=== PATIENT | female | born 1960 | race Caucasian/White ===

== ENCOUNTER 2019-07-17 06:15 | Day surgery (SDC) | payer BC ==
[2019-07-17] MEDS ORDERED: Lactated Ringers 1,000 ML IV ONE (06:16)
[2019-07-17] MEDS ORDERED: Midazolam 1 MG/ML 2 ML SDV IV ONE (06:16)
[2019-07-17] MEDS ORDERED: Ropivacaine 0.5% 5 MG/ML 20 ML SDV INJECT ONE (06:16)
[2019-07-17] MEDS ORDERED: fentaNYL 100 MCG/2 ML SDV IV ONE (06:16)
[2019-07-17] MEDS ORDERED: Propofol 200 MG/20 ML SDV IV ONE (06:16)
[2019-07-17] MEDS ORDERED: Ondansetron 4 MG/2 ML SDV IVPUSH ONE (06:16)
[2019-07-17] MEDS ORDERED: Ketorolac 30 MG/ML SDV IVPUSH ONE (06:16)
[2019-07-17] MEDS ORDERED: Gabapentin 300 MG Cap PO ONE (06:30)
[2019-07-17] MEDS ORDERED: Scopolamine 1.5 MG Transdermal Patch TRDERM ONE (06:30)
[2019-07-17] MEDS ORDERED: Acetaminophen 500 MG Tab PO ONE (06:30)
[2019-07-17] MEDS ORDERED: Sodium Chloride 0.9% 10 ML Syringe FLUSH PRN ×2 (06:30→11:14)
[2019-07-17] MEDS ORDERED: Lactated Ringers 1,000 ML IV SCH (06:30)
[2019-07-17] MEDS ORDERED: Ropivacaine 49.25 ML, Ketorolac 30 MG, EPINEPHrine 0.5 MG, cloNIDine 80 MCG, Sodium Chl... INJECT ONE ×5 (08:00)
[2019-07-17] MEDS ORDERED: Tranexamic Acid 3,000 MG, Sodium Chloride 0.9% 100 ML IRR ONE ×2 (08:20)
[2019-07-17] MEDS ORDERED: Vancomycin 1 GM SDV ONE (10:02)
[2019-07-17] MEDS ORDERED: Zolpidem 5 MG Tab PO PRN (11:14)
[2019-07-17] MEDS ORDERED: Bisacodyl 5 MG Tab PO PRN (11:14)
[2019-07-17] MEDS ORDERED: traMADol 50 MG Tab PO PRN (11:14)
[2019-07-17] MEDS ORDERED: Morphine 2 MG/ML Syringe IVPUSH PRN (11:14)
[2019-07-17] MEDS ORDERED: Docusate Sodium 100 MG Cap PO PRN (11:14)
[2019-07-17] MEDS ORDERED: Ondansetron 4 MG/2 ML SDV IVPUSH PRN (11:14)
[2019-07-17] MEDS ORDERED: Magnesium Hydroxide 400 MG/5 ML Susp 30 ML Cup PO PRN (11:14)
[2019-07-17] MEDS ORDERED: Sennosides 8.6 MG Tab PO PRN (11:14)
[2019-07-17] MEDS ORDERED: Naloxone 0.4 MG/ML SDV IVPUSH PRN (11:14)
[2019-07-17] MEDS ORDERED: diphenhydrAMINE 50 MG/ML SDV IVPUSH PRN (11:14)
--- NOTE | 2019-07-17 12:20 | PCM.SN ---
- Free Text/Narrative Note: ANESTHESIA ACUTE PAIN SERVICE Date: 07/17/2019 Time: 1112 to 1131 Dx: End-stage Osteoarthritis Left Knee Rx: Left Total Knee Arthroplasty The physician and the patient both request post-operative pain control. Procedure: Left Adductor Canal Nerve Block with Ultrasound [U/S] Guidance. I discussed the risks and benefits of this nerve block with the patient and her including block failure. All questions about this were answered completely and she wishes to proceed with this nerve block in PACU. A consent was obtained. Monitors: NIBP, ECG, SpO2 and O2 per nasal cannula at 2 L/Min. See her vital signs in the nursing chart. Sedation: None She remained arousable and alert / orientated throughout the procedure. The patient is supine with her left leg in a frogleg position. A pre-nerve block U/S scan showed the left Femoral Artery/Vein and the Sartorius muscle superior to the artery at a depth of 5.5 cm [her BMI 48+] Using aseptic technique, I prepped the needle insertion site with a Chlora-Prep sponge X 1 and allowed it to dry. No local was needed since the spinal was working well. I then inserted and advanced a 20 Ga. X 3.5 In. Stimuplex Ultra 360 Insulated Echogenic Needle under direct U/S visualization. I did enter the Femoral artery with a positive aspiration for blood. I then backed out the needle until there was no aspiration of blood. With multiple attempts under U/S [the picture was very grainy and hard to see after the first scan], I then placed the needle next to the artery with a negative aspiration for blood. The total injection solution was 20 ml's of .5% Naropin in divided doses. No patient complaints or complications noted. Documentation: See U/S images taken in Radiology's PAC System. Thank you for using our service. TAI Cabezas CRNA
--- NOTE | 2019-07-17 14:05 | OR ---
DATE OF OPERATION: 07/17/2019 SURGEON: Leo Echavarria DO PREOPERATIVE DIAGNOSIS: Left knee primary osteoarthritis. POSTOPERATIVE DIAGNOSES: 1. Left knee primary osteoarthritis. 2. Medial and posterior tibial plateau fracture. TABLE SETTER: Cee Wilson NP. Nurse practitioner, Cee Wilson NP, played an essential role in assisting in this case, helping to position the patient, retract structures as needed, as well as suturing and cutting sutures as indicated. Her presence improved patient's safety and decreased operative time. ANESTHESIA: Spinal plus conscious sedation. FLUID: Lactated Ringer solution. ESTIMATED BLOOD LOSS: 300 mL. COMPLICATION: None. SPECIMEN: None. DISCHARGE DISPOSITION: Stable to PACU. HISTORY AND INDICATION FOR THE PROCEDURE: The patient was seen preoperatively in the clinic. She had been having increasing left knee pain. Preoperative imaging confirmed the above-mentioned diagnosis. Risks and benefits of the procedure were explained to the patient. Informed consent was obtained. DETAILS OF PROCEDURE: The patient was seen preoperatively by myself and the anesthesia staff in the preoperative holding area where the operative site was marked. She was brought to the operative suite by Anesthesia staff where spinal plus conscious sedation was administered. A well-padded tourniquet was placed on the left thigh. All extremities were found to be well padded. The left lower extremity was then prepped and draped in a sterile manner. Time-out was called identifying the correct patient, correct procedure, the correct site, and the antibiotics were begun within appropriate time. A midline incision was made from the tibial tubercle 4 fingerbreadths proximal to the patella. Medial parapatellar arthrotomy was made. Bleeding was controlled with Bovie electrocautery. A full synovectomy was performed. Osteophytes from all 3 compartments were rongeured off. The patella was everted and held in place with a towel clip. The knee was then flexed. After the osteophytes and soft tissue around the patella were removed, I made 2 perpendicular cuts and then drilled my trial holes and then placed my trial patella in place. We then reamed the distal femur and placed an intramedullary guide at 5-degree valgus 9 mm distal cut. The distal femur was cut after removing the intramedullary portion of the guide. The guide was then removed. Posterior condylar guide was then used after removing more osteophytes. This measured a 5, so 2 pins were placed for the 5 and then a chamfer block was placed and then medial and lateral Hohmanns were placed to protect the collateral ligaments and then we did our chamfer cuts. I then cleaned these up and removed osteophytes with rongeurs and osteotomes. I then focused on the tibia. We used an extramedullary tibial guide in line with the tibial tubercle and 2nd metatarsal with approximately 5 degree posterior slope. I used medial and lateral Hohmann for protection. I did not use a posterior Hohmann at that point due to difficulty in exposure with all the osteophytes. I had removed many of the osteophytes from the medial tibial plateau. I then made my proximal cut. I then removed the proximal tibia portion. I did make a 2nd cut. After that had been performed, I removed my cutting guide and then used a lamina general handling supervisor. At this point, I could see that there was a posterior tibial plateau fracture. This was not fresh as the edges were not bloody. Part of this, about half of it was osteophyte on the medial side. The total was about 2 cm x 3 cm wide. I removed this portion as most of it was osteophyte and then removed the remainder of the medial and lateral menisci and then used a curved osteotome to remove posterior osteophytes. I then anteriorized the tibia. I then actually used sulcus guide and reamed out the sulcus with a rasp. I then anterior the tibia with a blunt Hohmann and then placed 4 baseplate, which fit nicely in line with the tibial spine and 2nd metatarsal. I put the tower in place and then reamed and tamped this into position. I then placed my femur on, the tibial trial was a 5 mm, size 4, and then tried that. It was tight on the lateral side compared to the medial. I then applied my extramedullary tibial guide again and with osteophytes removed, I was able to remove a little bit more on the lateral plateau while still keeping in line with the tibial tubercle and 2nd metatarsal. We then trialed this again and went up to an 8. The medial collateral ligament and lateral collateral ligaments were still competent and I could feel that there was slight gapping of the medial compartment, but certainly not beyond what would be acceptable. We then removed all of our components. We then copiously irrigated with saline and then cemented the components in place in full extension. After this, we let the tourniquet down at 70 minutes. The poly was then removed. We controlled any bleeders with Bovie electrocautery. I did apply later on some Floseal and some Avitene. There were just small bleeders present. I placed my final polyethylene with a size 8 mm, but thought that after we put this in that this was too lax. I trialed up to a 12, and I thought that this would provide good stability. We then inserted the 12 mm polyethylene, which provided excellent medial and lateral stability; however, there was significant anterior-posterior instability. I then irrigated again with Betadine infused irrigation and then closed the parapatellar arthrotomy with a [id number] #5 Ethibond sutures followed by a 1 Stratafix in a watertight manner. At the distal end over the baseplate and part of the poly, this was uncovered, so I placed a small amount of mesh and tied this in with Ethibond just to protect the capsule more. I then closed with a #2 running Stratafix subcutaneously followed by skin aayush followed by Betadine-soaked Adaptic. This was still very stable from a medial-lateral standpoint and extension as well as mid flexion; however, it was fairly unstable anterior to posterior. We then put on a dressing and an Marino wrap and allowed the patient to awake from general anesthesia. She was then going to get a block and then be placed into a hinged knee brace, which will be unlocked. The patient was then taken to PACU in stable condition. /[id number] ROSA/CARMINE
--- NOTE | 2019-07-17 15:37 | CR ---
INDICATION: Postop left total knee arthroplasty. LEFT KNEE: Frontal and lateral views of the left knee were obtained 07/17/2019 and compared with preoperative study of 06/25/2019 revealing interval total knee arthroplasty with good position and alignment suggested, and no definite complicating process identified. Intraoperative changes remain present with air in the joint. Metallic clips are noted closing the surgical wound anteriorly. IMPRESSION: Satisfactory appearance postop TKA. JAVIER
[2019-07-17] MEDS: Acetaminophen/oxyCODONE 325-5 MG Tab PO PRN ×2 (16:51→21:11)
[2019-07-17] MEDS: Ketorolac 30 MG/ML SDV IVPUSH SCH (18:50)
[2019-07-17] MEDS: Lactated Ringers 1,000 ML IV SCH (18:52)
[2019-07-17] MEDS ORDERED: DULoxetine 20 MG Cap PO SCH (20:00)
[2019-07-17] MEDS ORDERED: ClonazePAM 0.5 MG Tab PO SCH (21:00)
[2019-07-17] MEDS: ceFAZolin 1 GM Vial IVPUSH SCH (21:55)
[2019-07-18] MEDS: Ketorolac 30 MG/ML SDV IVPUSH SCH (01:52)
[2019-07-18] MEDS: ceFAZolin 1 GM Vial IVPUSH SCH (05:42)
[2019-07-18] MEDS: Acetaminophen/oxyCODONE 325-5 MG Tab PO PRN ×4 (05:44→20:59)
[2019-07-18] MEDS: Lactated Ringers 1,000 ML IV SCH (07:53)
[2019-07-18] MEDS: Aspirin 325 MG Tab.EC PO SCH (08:25)
[2019-07-18] MEDS: DULoxetine 20 MG Cap PO SCH (08:25)
[2019-07-18] MEDS: Hydrochlorothiazide/Lisinopril 25-20 MG Tab PO SCH (08:25)
[2019-07-18] MEDS: Calcium Carbonate 500 MG Tablet PO SCH (08:26)
[2019-07-18] MEDS ORDERED: amLODIPine 5 MG Tab ONE (20:38)
[2019-07-18] MEDS: amLODIPine 2.5 MG Tab PO SCH (20:56)
[2019-07-19] MEDS: Acetaminophen/oxyCODONE 325-5 MG Tab PO PRN ×4 (01:09→13:22)
[2019-07-19] MEDS: DULoxetine 20 MG Cap PO SCH (09:22)
[2019-07-19] MEDS: Aspirin 325 MG Tab.EC PO SCH (09:22)
[2019-07-19] MEDS: Hydrochlorothiazide/Lisinopril 25-20 MG Tab PO SCH (09:22)
[2019-07-19] MEDS: Calcium Carbonate 500 MG Tablet PO SCH (09:23)
[2019-07-19] MEDS: amLODIPine 2.5 MG Tab PO SCH (09:23)
--- NOTE | 2019-07-19 11:05 | PCM.PN ---
- General Info Date of Service: 07/18/19 Admission Dx/Problem (Free Text): left knee primary oa Functional Status: Reports: Pain Controlled, Tolerating Diet, Ambulating, Urinating - Review of Systems General: Reports: No Symptoms HEENT: Reports: No Symptoms Pulmonary: Reports: No Symptoms Cardiovascular: Reports: No Symptoms Gastrointestinal: Reports: No Symptoms Genitourinary: Reports: No Symptoms Musculoskeletal: Reports: Leg Pain, Joint Pain, Joint Swelling Skin: Reports: No Symptoms Neurological: Reports: No Symptoms Psychiatric: Reports: No Symptoms - Patient Data Vitals - Most Recent: Last Vital Signs Temp 98.6 F 07/19/19 05:15 Pulse 75 07/19/19 05:15 Resp 20 07/19/19 05:15 BP 132/66 07/19/19 09:23 Pulse Ox 91 L 07/19/19 05:15 Weight - Most Recent: 265 lb I&O - Last 24 Hours: Intake & Output 07/18/19 07/19/19 07/19/19 22:59 06:59 14:59 Intake Total 400 Balance 400 Lab Results Last 24 Hours: Laboratory Results - last 24 hr 07/19/19 07/19/19 Range/Units 06:10 06:10 WBC 6.1 (4.5-12.0) X10-3/uL RBC 3.32 (3.23-5.20) x10(6)uL Hgb 10.8 L (11.5-15.5) g/dL Hct 31.4 (30.0-51.3) % MCV 94.6 (80-96) fL MCH 32.4 (27.7-33.6) pg MCHC 34.2 (32.2-35.4) g/dL RDW 12.2 (11.5-15.5) % Plt Count 141 (125-369) X10(3)uL MPV 8.7 (7.4-10.4) fL Neut % (Auto) 57.0 (46-82) % Lymph % (Auto) 30.7 (13-37) % [place] % (Auto) 8.7 (4-12) % Eos % (Auto) 3 (1.0-5.0) % Baso % (Auto) 1 (0-2) % Neut # (Auto) 3.5 (1.6-8.3) # Lymph # (Auto) 1.9 (0.6-5.0) # [place] # (Auto) 0.5 (0.0-1.3) # Eos # (Auto) 0.2 (0.0-0.8) # Baso # (Auto) 0.0 (0.0-0.2) # Sodium 137 (135-145) mmol/L Potassium 4.0 (3.5-5.3) mmol/L Chloride 101 (100-110) mmol/L Carbon Dioxide 29 (21-32) mmol/L BUN 12 (7-18) mg/dL Creatinine 0.7 (0.55-1.02) mg/dL Est Cr Clr Drug Dosing 70.70 mL/min Estimated GFR (MDRD) > 60 (>60) BUN/Creatinine Ratio 17.1 (9-20) Glucose 90 (80-116) mg/dL Calcium 8.6 (8.6-10.2) mg/dL Total Bilirubin 1.3 (0.1-1.3) mg/dL AST 22 (5-25) IU/L ALT 22 D (12-36) U/L Alkaline Phosphatase 53 L (56-112) IU/L Total Protein 5.7 L (6.0-8.0) g/dL Albumin 2.8 L (3.2-4.6) g/dL Globulin 2.9 g/dL Albumin/Globulin Ratio 1.0 Med Orders - Current: Current Medications Amlodipine Besylate (Norvasc) 2.5 mg PO DAILY [facility] Last Admin: 07/19/19 09:23 Dose: 2.5 mg Aspirin (Ecotrin) 325 mg PO DAILY [facility] Last Admin: 07/19/19 09:22 Dose: 325 mg Bisacodyl (Dulcolax) 10 mg PO DAILY PRN PRN Reason: Constipation Calcium Carbonate/Glycine (Oyster Shell Calcium) 500 mg PO DAILY [facility] Last Admin: 07/19/19 09:23 Dose: 500 mg Diazepam (Valium) 5 mg IVPUSH Q6H PRN PRN Reason: Spasms Diphenhydramine HCl (Benadryl) 25 mg IVPUSH Q4H PRN PRN Reason: Itching Docusate Sodium (Colace) 100 mg PO BID PRN PRN Reason: Constipation Duloxetine HCl (Cymbalta) 40 mg PO DAILY [facility] Last Admin: 07/19/19 09:22 Dose: 40 mg Lisinopril/HCTZ (Lisinopril-Hctz 20-25 Mg) 1 tab PO DAILY [facility] Last Admin: 07/19/19 09:22 Dose: 1 tab Lactated Ringer's (Ringers, Lactated) 1,000 mls @ 75 mls/hr IV ASDIRECTED [facility] Last Admin: 07/18/19 07:53 Dose: 75 mls/hr Magnesium Hydroxide (Milk Of Magnesia) 30 ml PO BID PRN PRN Reason: Constipation Morphine Sulfate (Morphine) 2 mg IVPUSH Q2H PRN PRN Reason: Breakthrough Pain Naloxone HCl (Narcan) 0.1 mg IVPUSH ONETIME PRN PRN Reason: Oversedation Ondansetron HCl (Zofran) 4 mg IVPUSH Q4H PRN PRN Reason: Nausea/Vomiting Oxycodone/Acetaminophen (Percocet 325-5 Mg) 2 tab PO Q4H PRN PRN Reason: Pain (moderate 4-6) Last Admin: 07/19/19 09:24 Dose: 2 tab Senna (Senna) 8.6 mg PO BID PRN PRN Reason: Constipation Sodium Chloride (Saline Flush) 10 ml FLUSH ASDIRECTED PRN PRN Reason: Keep Vein Open Sodium Chloride (Saline Flush) 10 ml FLUSH ASDIRECTED PRN PRN Reason: Keep Vein Open Tramadol HCl (Ultram) 100 mg PO Q6H PRN PRN Reason: Pain (mild 1-3) Zolpidem Tartrate (Ambien) 5 mg PO BEDTIME PRN PRN Reason: Sleep Discontinued Medications Acetaminophen (Tylenol Extra Strength) 1,000 mg PO ONETIME ONE Stop: 07/17/19 06:31 Last Admin: 07/17/19 07:19 Dose: 1,000 mg Amlodipine Besylate (Norvasc) Confirm Administered Dose 5 mg .ROUTE .STK-MED ONE Stop: 07/18/19 20:39 Last Admin: 07/18/19 20:56 Dose: Not Given Cefazolin Sodium (Ancef) 1 gm IVPUSH Q8H [facility] Stop: 07/18/19 05:31 Last Admin: 07/18/19 05:42 Dose: 1 gm Ropivacaine 49.25 ml/Ketorolac Tromethamine 30 mg/Epinephrine HCl 0.5 mg/ Clonidine HCl 80 mcg/ Sodium Chloride 48.45 ml 0 ml INJECT ASDIRECTED ONE Stop: 07/17/19 08:01 Last Admin: 07/17/19 09:14 Dose: 100 syringe Tranexamic Acid 3,000 mg/ (Sodium Chloride 100 ml) 0 mg IRR ONETIME ONE Stop: 07/17/19 08:21 Last Admin: 07/17/19 09:14 Dose: 100 irr Gabapentin (Neurontin) 300 mg PO ONETIME ONE Stop: 07/17/19 06:31 Last Admin: 07/17/19 07:19 Dose: 300 mg Cefazolin Sodium 3 gm/ Sodium (Chloride) 100 mls @ 200 mls/hr IV ONETIME ONE Stop: 07/17/19 06:59 Last Admin: 07/17/19 07:55 Dose: 200 mls/hr Lactated Ringer's (Ringers, Lactated) 1,000 mls @ 125 mls/hr IV ASDIRECTED [facility] Last Admin: 07/17/19 07:17 Dose: 125 mls/hr Ketorolac Tromethamine (Toradol) 30 mg IVPUSH Q8H [facility] Stop: 07/18/19 02:31 Last Admin: 07/18/19 01:52 Dose: 30 mg Scopolamine (Transderm-Scop) 1.5 mg TRDERM Q72H ONE Stop: 07/17/19 06:31 Last Admin: 07/17/19 07:18 Dose: 1.5 mg Vancomycin HCl (Vancomycin) 1 gm .XX .STK-MED ONE Stop: 07/17/19 10:03 Last Admin: 07/17/19 10:02 Dose: 1 gm - Exam General: Alert, Oriented, Cooperative, Moderate Distress HEENT: Pupils Equal, Pupils Reactive, EOMI, Mucous Membr. Moist/[place] Neck: Supple, Trachea Midline Lungs: Normal Respiratory Effort Extremities: Joint Swelling, Leg Pain, Limited Range of Motion Skin: Warm, Dry, Intact Wound/Incisions: Healing Well, Drainage Neurological: No New Focal Deficit Psy/Mental Status: Alert, Normal Affect, Normal Mood Sepsis Event Note - Evaluation Sepsis Screening Result: No Definite Risk - Focused Exam Vital Signs: Vital Signs Temp Pulse Resp BP BP BP Pulse Ox 07/19/19 09:23 132/66 07/19/19 09:22 132/66 07/19/19 05:15 98.6 F 75 20 120/54 L 91 L 07/19/19 01:00 98.6 F 79 18 105/56 L 91 L Date Exam was Performed: 07/19/19 Time Exam was Performed: 11:03 - Problem List & Annotations (1) Arthritis of left knee SNOMED Code(s): 386766411 Code(s): M17.12 - UNILATERAL PRIMARY OSTEOARTHRITIS, LEFT KNEE Status: Acute Current Visit: Yes - Problem List Review Problem List Initiated/Reviewed/Updated: Yes - My Orders Last 24 Hours: My Active Orders 07/18/19 Dinner Regular Diet [DIET] - Plan Plan:: pt/ot, pain control, dvt prophylaxis, keep in brace unlocked
--- NOTE | 2019-07-19 11:09 | PCM.DCSUM1 ---
Discharge Summary - Hospital Course Diagnosis: Stroke: No - Discharge Data Discharge Date: 07/19/19 Discharge Disposition: Home, Self-Care 01 Condition: Good - Referral to Home Health Primary Care Physician: Ella Carbajal NP - Discharge Diagnosis/Problem(s) (1) Arthritis of left knee SNOMED Code(s): 697780610 ICD Code: M17.12 - UNILATERAL PRIMARY OSTEOARTHRITIS, LEFT KNEE Status: Acute Current Visit: Yes - Patient Summary/Data Operative Procedure(s) Performed: left knee tka Complications: none Consults: Consultations 07/17/19 15:00 OT Evaluation and Treatment [CONS] Routine Please Evaluate and Treat. OT Reason for Consult: Strengthening This query below is only for informational purposes and is not editable. Admission Diagnosis/Problem: Left knee pain PT Evaluation and Treatment [CONS] Routine Please Evaluate and Treat. PT Reason for Consult: Strengthening This query below is only for informational purposes and is not editable. Admission Diagnosis/Problem: Left knee pain - Patient Instructions Diet: Usual Diet as Tolerated Activity: Apply Ice, As Tolerated, Full Weight Bearing, No Strenuous Activities Driving: Do Not Drive Showering/Bathing: May Shower Wound/Incision Care: Keep Operative Site/Wound Site Clean and Dry Wound/Incision, Other: remove wound vac wednesday, replace with aquacell Notify Provider of: Fever, Increased Pain, Swelling and Redness, Drainage, Nausea and/or Vomiting - Discharge Plan *PRESCRIPTION DRUG MONITORING PROGRAM REVIEWED*: Yes *COPY OF PRESCRIPTION DRUG MONITORING REPORT IN PATIENT LILIYA: No Prescriptions/Med Rec: Aspirin [Ecotrin EC] 325 mg PO DAILY #21 tab.ec Home Medications: Home Meds Calcium Carbonate/Vitamin D3 [Calcium 600 + Vit D 200] 1 tab PO DAILY 07/13/19 [ History] DULoxetine [Cymbalta] 40 mg PO DAILY 07/13/19 [History] Fish Oil/[place]-3 Fatty Acids [Fish Oil 1,000 MG] 1 each PO DAILY 07/13/19 [ History] Multivitamin with Minerals [Multiple Vitamin] 1 tab PO DAILY 07/13/19 [History] Simvastatin [Zocor] 20 mg PO BEDTIME 07/13/19 [History] amLODIPine Besylate [Norvasc] 2.5 mg PO DAILY 07/13/19 [History] clonazePAM [Klonopin] 0.5 mg PO BEDTIME 07/13/19 [History] Lisinopril/Hydrochlorothiazide [Lisinopril-Hctz 20-25 mg Tab] 1 tab PO DAILY 08/31 [History] Aspirin [Ecotrin EC] 325 mg PO DAILY #21 tab.ec 07/19/19 [Rx] Patient Handouts: Total Knee Replacement, Care After, [id number], Fall Prevention in Hospitals, Adult, Preventing Problems After Surgery, Venous Thromboembolism Prevention, Community-Acquired Pneumonia, Adult, [id number] - Discharge Summary/Plan Comment DC Time >30 min.: No - Patient Data Vitals - Most Recent: Last Vital Signs Temp 98.6 F 07/19/19 05:15 Pulse 75 07/19/19 05:15 Resp 20 07/19/19 05:15 BP 132/66 07/19/19 09:23 Pulse Ox 91 L 07/19/19 05:15 Weight - Most Recent: 265 lb I&O - Last 24 hours: Intake & Output 07/18/19 07/19/19 07/19/19 22:59 06:59 14:59 Intake Total 400 Balance 400 Lab Results - Last 24 hrs: Laboratory Results - last 24 hr 07/19/19 07/19/19 Range/Units 06:10 06:10 WBC 6.1 (4.5-12.0) X10-3/uL RBC 3.32 (3.23-5.20) x10(6)uL Hgb 10.8 L (11.5-15.5) g/dL Hct 31.4 (30.0-51.3) % MCV 94.6 (80-96) fL MCH 32.4 (27.7-33.6) pg MCHC 34.2 (32.2-35.4) g/dL RDW 12.2 (11.5-15.5) % Plt Count 141 (125-369) X10(3)uL MPV 8.7 (7.4-10.4) fL Neut % (Auto) 57.0 (46-82) % Lymph % (Auto) 30.7 (13-37) % [place] % (Auto) 8.7 (4-12) % Eos % (Auto) 3 (1.0-5.0) % Baso % (Auto) 1 (0-2) % Neut # (Auto) 3.5 (1.6-8.3) # Lymph # (Auto) 1.9 (0.6-5.0) # [place] # (Auto) 0.5 (0.0-1.3) # Eos # (Auto) 0.2 (0.0-0.8) # Baso # (Auto) 0.0 (0.0-0.2) # Sodium 137 (135-145) mmol/L Potassium 4.0 (3.5-5.3) mmol/L Chloride 101 (100-110) mmol/L Carbon Dioxide 29 (21-32) mmol/L BUN 12 (7-18) mg/dL Creatinine 0.7 (0.55-1.02) mg/dL Est Cr Clr Drug Dosing 70.70 mL/min Estimated GFR (MDRD) > 60 (>60) BUN/Creatinine Ratio 17.1 (9-20) Glucose 90 (80-116) mg/dL Calcium 8.6 (8.6-10.2) mg/dL Total Bilirubin 1.3 (0.1-1.3) mg/dL AST 22 (5-25) IU/L ALT 22 D (12-36) U/L Alkaline Phosphatase 53 L (56-112) IU/L Total Protein 5.7 L (6.0-8.0) g/dL Albumin 2.8 L (3.2-4.6) g/dL Globulin 2.9 g/dL Albumin/Globulin Ratio 1.0 Med Orders - Current: Current Medications Amlodipine Besylate (Norvasc) 2.5 mg PO DAILY [facility] Last Admin: 07/19/19 09:23 Dose: 2.5 mg Aspirin (Ecotrin) 325 mg PO DAILY [facility] Last Admin: 07/19/19 09:22 Dose: 325 mg Bisacodyl (Dulcolax) 10 mg PO DAILY PRN PRN Reason: Constipation Calcium Carbonate/Glycine (Oyster Shell Calcium) 500 mg PO DAILY [facility] Last Admin: 07/19/19 09:23 Dose: 500 mg Diazepam (Valium) 5 mg IVPUSH Q6H PRN PRN Reason: Spasms Diphenhydramine HCl (Benadryl) 25 mg IVPUSH Q4H PRN PRN Reason: Itching Docusate Sodium (Colace) 100 mg PO BID PRN PRN Reason: Constipation Duloxetine HCl (Cymbalta) 40 mg PO DAILY [facility] Last Admin: 07/19/19 09:22 Dose: 40 mg Lisinopril/HCTZ (Lisinopril-Hctz 20-25 Mg) 1 tab PO DAILY [facility] Last Admin: 07/19/19 09:22 Dose: 1 tab Lactated Ringer's (Ringers, Lactated) 1,000 mls @ 75 mls/hr IV ASDIRECTED [facility] Last Admin: 07/18/19 07:53 Dose: 75 mls/hr Magnesium Hydroxide (Milk Of Magnesia) 30 ml PO BID PRN PRN Reason: Constipation Morphine Sulfate (Morphine) 2 mg IVPUSH Q2H PRN PRN Reason: Breakthrough Pain Naloxone HCl (Narcan) 0.1 mg IVPUSH ONETIME PRN PRN Reason: Oversedation Ondansetron HCl (Zofran) 4 mg IVPUSH Q4H PRN PRN Reason: Nausea/Vomiting Oxycodone/Acetaminophen (Percocet 325-5 Mg) 2 tab PO Q4H PRN PRN Reason: Pain (moderate 4-6) Last Admin: 07/19/19 09:24 Dose: 2 tab Senna (Senna) 8.6 mg PO BID PRN PRN Reason: Constipation Sodium Chloride (Saline Flush) 10 ml FLUSH ASDIRECTED PRN PRN Reason: Keep Vein Open Sodium Chloride (Saline Flush) 10 ml FLUSH ASDIRECTED PRN PRN Reason: Keep Vein Open Tramadol HCl (Ultram) 100 mg PO Q6H PRN PRN Reason: Pain (mild 1-3) Zolpidem Tartrate (Ambien) 5 mg PO BEDTIME PRN PRN Reason: Sleep Discontinued Medications Acetaminophen (Tylenol Extra Strength) 1,000 mg PO ONETIME ONE Stop: 07/17/19 06:31 Last Admin: 07/17/19 07:19 Dose: 1,000 mg Amlodipine Besylate (Norvasc) Confirm Administered Dose 5 mg .ROUTE .STK-MED ONE Stop: 07/18/19 20:39 Last Admin: 07/18/19 20:56 Dose: Not Given Cefazolin Sodium (Ancef) 1 gm IVPUSH Q8H [facility] Stop: 07/18/19 05:31 Last Admin: 07/18/19 05:42 Dose: 1 gm Ropivacaine 49.25 ml/Ketorolac Tromethamine 30 mg/Epinephrine HCl 0.5 mg/ Clonidine HCl 80 mcg/ Sodium Chloride 48.45 ml 0 ml INJECT ASDIRECTED ONE Stop: 07/17/19 08:01 Last Admin: 07/17/19 09:14 Dose: 100 syringe Tranexamic Acid 3,000 mg/ (Sodium Chloride 100 ml) 0 mg IRR ONETIME ONE Stop: 07/17/19 08:21 Last Admin: 07/17/19 09:14 Dose: 100 irr Gabapentin (Neurontin) 300 mg PO ONETIME ONE Stop: 07/17/19 06:31 Last Admin: 07/17/19 07:19 Dose: 300 mg Cefazolin Sodium 3 gm/ Sodium (Chloride) 100 mls @ 200 mls/hr IV ONETIME ONE Stop: 07/17/19 06:59 Last Admin: 07/17/19 07:55 Dose: 200 mls/hr Lactated Ringer's (Ringers, Lactated) 1,000 mls @ 125 mls/hr IV ASDIRECTED [facility] Last Admin: 07/17/19 07:17 Dose: 125 mls/hr Ketorolac Tromethamine (Toradol) 30 mg IVPUSH Q8H [facility] Stop: 07/18/19 02:31 Last Admin: 07/18/19 01:52 Dose: 30 mg Scopolamine (Transderm-Scop) 1.5 mg TRDERM Q72H ONE Stop: 07/17/19 06:31 Last Admin: 07/17/19 07:18 Dose: 1.5 mg Vancomycin HCl (Vancomycin) 1 gm .XX .STK-MED ONE Stop: 07/17/19 10:03 Last Admin: 07/17/19 10:02 Dose: 1 gm
--- NOTE | 2019-07-19 16:00 | US ---
INDICATION: Adductor nerve block, left femur, for total knee arthroplasty. ULTRASOUND RFA GUIDANCE: Multiple ultrasonic images were obtained with ultrasonic guidance for adductor nerve block on the left. MTDD
== END 2019-07-19 13:30 ==
LOC: FB.SDS 06:15 → FB.MS 12:00 → FB.SDS 12:00 → FB.MS 12:43 → FB.SDS 07-19 13:30
PROVIDERS: ATTEND Orthopaedic Surgery
DX: M17.12 Unilateral primary osteoarthritis, left knee (principal); S82.142A Displaced bicondylar fracture of left tibia, initial encounter for closed fracture; G89.18 Other acute postprocedural pain; I10 Essential (primary) hypertension; E78.5 Hyperlipidemia, unspecified; F33.42 Major depressive disorder, recurrent, in full remission; F41.1 Generalized anxiety disorder; G47.30 Sleep apnea, unspecified; E66.01 Morbid (severe) obesity due to excess calories; X58.XXXA Exposure to other specified factors, initial encounter; Z68.42 Body mass index [BMI] 45.0-49.9, adult; Z79.899 Other long term (current) drug therapy; Z99.89 Dependence on other enabling machines and devices
CPT/HCPCS: 27447; 36415; 64447; 73560; 80053; 85025; 86850; 86900; 86901; 94150; 97110; 97116; 97161; 97166; 97530; 97535; A9270; C1713; C1776; C1781; J0171; J0690; J0735; J1885; J2250; J2405; J2704; J2795; J3010; J3370; J7050; J7120

== ENCOUNTER 2021-11-19 07:17 | Day surgery (SDC) | payer BC ==
[~2021-11-19 07:17] MED LIST: Lactated Ringers 1,000 ML IV SCH; Sodium Chloride 0.9% 10 ML Syringe FLUSH PRN
[2021-11-19] MEDS ORDERED: Midazolam 1 MG/ML 2 ML SDV IV ONE (07:18)
[2021-11-19] MEDS ORDERED: Propofol 200 MG/20 ML SDV IV ONE (07:18)
[2021-11-19] MEDS ORDERED: Ketamine 500 mg/10 ML MDV IV ONE (07:18)
== END 2021-11-19 09:40 | disposition home or self-care (01) ==
LOC: FB.SDS 07:17
PROVIDERS: ATTEND Surgery
DX: D12.6 Benign neoplasm of colon, unspecified (principal); K62.1 Rectal polyp; K57.30 Diverticulosis of large intestine without perforation or abscess without bleeding; E66.01 Morbid (severe) obesity due to excess calories; F41.9 Anxiety disorder, unspecified; F32.A Depression, unspecified; E78.5 Hyperlipidemia, unspecified; I10 Essential (primary) hypertension; G47.30 Sleep apnea, unspecified; Z79.899 Other long term (current) drug therapy; Z68.43 Body mass index [BMI] 50.0-59.9, adult
CPT/HCPCS: 00812-QZ; 88305; J2250; J2704; J3490; J7120